=== PATIENT | female | born 1985 | race African-American/Black ===

== ENCOUNTER 2017-01-28 12:50 | Emergency (ER) | payer OTHER, MEDICAID ==
[2017-01-28] MEDS ORDERED: IBUPROFEN 800 MG TABLET PO ONE (14:08)
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
[2017-01-28 21:32] VITALS: BP 118/72
== END 2017-01-28 14:31 | disposition home or self-care (01) ==
LOC: ER 12:50
DX: M25.512 Pain in left shoulder (principal); M25.532 Pain in left wrist; V87.7XXA Person injured in collision between other specified motor vehicles (traffic), initial encounter
CPT/HCPCS: 99284

== ENCOUNTER → 2018-04-20 | Outpatient (CLI) | payer OTHER ==
--- NOTE | 2018-04-20 10:26 | RADIOLOGY REPORT (SQ) ---
EXAM DESCRIPTION: U/S NON-OB PELVIS TV W/O DOP COMPLETED DATE/TIME: 04/20/2018 10:09 am REASON FOR STUDY: N92.1 EXCESSIVE AND FREQUENT MENSTRUATION WITH IRREGULAR CYCLE N92.1 EXCESSIVE AN D FREQUENT MENSTRUATION WITH IRREGULAR CYC E66.01 MORBID (SEVERE) OBESITY DUE TO EXCESS CALORIES N94 .6 DYSMENORRHEA, UNSPECIFIED LMP 03/22/2018 COMPARISON: 06/01/2011 TECHNIQUE: Dynamic and static grayscale images acquired of the pelvis via transvaginal approach and recorded on PACS. Additional selected color Doppler and spectral images recorded. LIMITATIONS: None. FINDINGS: UTERUS: Myometrium is heterogeneous. Likely 4.5 x 4 x 2.8 cm fibroid is present anteriorl y. ENDOMETRIAL STRIPE: No focal or generalized thickening. No masses. CERVIX: No nabothian cysts. RIGHT OVARY AND DOPPLER: Normal size. No worrisome masses. Normal arterial vascular flow without evid ence for torsion. LEFT OVARY AND DOPPLER: Normal size. No worrisome masses. There is a 2.9 x 2.2 x 1.9 cm cyst. Hanna l arterial vascular flow without evidence for torsion. FREE FLUID: None noted. OTHER: No other significant finding. MEASUREMENTS: UTERUS: 10.3 x 5.7 x 5.4 cm ENDOMETRIAL STRIPE: 8.5 mm RIGHT OVARY: 2.6 x 1.7 x 2 cm LEFT OVARY: 3.2 x 2.7 x 2.6 cm IMPRESSION: Uterine fibroid. TECHNICAL DOCUMENTATION: JOB ID: [id number] [employer]- All Rights Reserved Rev-02/02 Reading location - IP/workstation name: [email or web address]
== END ==
LOC: RAD 09:05
PROVIDERS: ATTEND Obstetrics & Gynecology Gynecology
DX: D25.9 Leiomyoma of uterus, unspecified (principal); N92.1 Excessive and frequent menstruation with irregular cycle; N94.6 Dysmenorrhea, unspecified; E66.01 Morbid (severe) obesity due to excess calories
CPT/HCPCS: 76830

== ENCOUNTER 2019-02-12 05:20 | Day surgery (SDC) | payer BC, OTHER ==
[2019-02-05 09:46] LABS: APPEARANCE,URINE CLEAR; BILIRUBIN,URINE NEGATIVE (NEGATIVE); COLOR,URINE YELLOW; GLUCOSE, URINE NEGATIVE (NEGATIVE); KETONES,URINE NEGATIVE (NEGATIVE); LEUKOCYTE ESTERASE,URINE NEGATIVE (NEGATIVE); NITRITE,URINE NEGATIVE (NEGATIVE); PROTEIN,URINE NEGATIVE (NEGATIVE); URINE SPECIFIC GRAVITY 1.015; UROBILINOGEN,URINE NEGATIVE mg/dL (<2.0)
[2019-02-05 10:05] LABS: HEMATOCRIT 36.7 % (36.0-47.0); HEMOGLOBIN 12.1 g/dL (12.0-15.5); MEAN CORPUSCULAR HEMOGLOBIN 25.4 pg (27.0-33.4); MEAN CORPUSCULAR HGB CONC 32.9 g/dL (32.0-36.0); MEAN CORPUSCULAR VOLUME 77 fl (80-97); PLATELET COUNT 406 10^3/uL (150-450); RED BLOOD COUNT 4.76 10^6/uL (3.72-5.28); RED CELL DISTRIBUTION WIDTH 14.9 % (11.5-14.0); WHITE BLOOD COUNT 7.1 10^3/uL (4.0-10.5)
[~2019-02-12 05:20] MED LIST: LACTATED RINGERS 1000 ML IV PRN; LIDOCAINE 0.5% INJ-PF (5 MG/ML) 50 ML SDV SUBCUT PRN
[2019-02-12] MEDS ORDERED: LIDOCAINE 2% INJ (20 MG/ML) 20 ML MDV ONE (06:46)
[2019-02-12] MEDS ORDERED: MIDAZOLAM 2 MG/2 ML INJ ONE ×2 (06:59→07:01)
[2019-02-12] MEDS ORDERED: HYDROMORPHONE HCL INJ/PF 2 MG/ML AMPULE ONE (06:59)
[2019-02-12] MEDS ORDERED: ACETAMINOPHEN 1,000 MG/100 ML RTUPB IV ONE (06:59)
[2019-02-12] MEDS ORDERED: PROPOFOL INJ 200 MG/20 ML VIAL IV ONE (06:59)
[2019-02-12] MEDS ORDERED: PROMETHAZINE HCL INJ 25 MG/1 ML VIAL ONE (07:00)
[2019-02-12] MEDS ORDERED: SCOPOLAMINE HYDROBROMIDE 1.5 MG PATCH.TD72 ONE (07:01)
[2019-02-12] MEDS ORDERED: FAMOTIDINE INJ/PF 20 MG/2 ML SDV IV ONE (07:01)
[2019-02-12] MEDS ORDERED: METOCLOPRAMIDE HCL INJ/PF 10 MG/2 ML SDV ONE (07:04)
[2019-02-12] MEDS ORDERED: CEFAZOLIN 2 GM/D5W RTU 2 GM/50 ML RTUPB IV ONE (07:11)
[2019-02-12 07:28] LABS: ANION GAP 12 (5-19); BLOOD UREA NITROGEN 11 mg/dL (7-20); CALCIUM 9.6 mg/dL (8.4-10.2); CARBON DIOXIDE 25 mmol/L (22-30); CHLORIDE 105 mmol/L (98-107); GLUCOSE 118 mg/dL (75-110); POTASSIUM 3.9 mmol/L (3.6-5.0); SODIUM 142.4 mmol/L (137-145)
[2019-02-12] MEDS ORDERED: BUPIVACAINE HCL 0.25 % INJ/PF (2.5 MG/1 ML) 30 ML VIAL ONE (07:48)
[2019-02-12] MEDS ORDERED: FENTANYL CITRATE INJ/PF 100 MCG/2 ML AMPUL IV PRN ×3 (07:51)
[2019-02-12] MEDS ORDERED: MORPHINE SULFATE 10 MG/ML INJ IV PRN (07:51)
[2019-02-12] MEDS ORDERED: ONDANSETRON HCL INJ/PF 4 MG/2 ML SDV IV PRN (07:51)
[2019-02-12] MEDS ORDERED: DIPHENHYDRAMINE HCL 50 MG/ML VIAL IV PRN (07:51)
[2019-02-12] MEDS ORDERED: MEPERIDINE HCL/PF INJ 25 MG/1 ML DISP.SYRIN IV PRN (07:51)
--- NOTE | 2019-02-12 09:49 | OPERATIVE REPORT E ---
Operative Report NAME: CYNTHIA BURCH : 1985 AGE: 33Y DATE OF SURGERY: 02/12/2019 ROOM: PREOPERATIVE DIAGNOSIS: OPERATIVE MENORRHEA WITH DYSMENORRHEA. POSTOPERATIVE DIAGNOSIS: 1. OPERATIVE MENORRHEA WITH DYSMENORRHEA. 2. ADHESIONS. OPERATION: Robotic assisted total hysterectomy with right salpingectomy and lysis of adhesions. SURGEON: Orion LOU M.D. ESTIMATED BLOOD LOSS: Less than 50 mL. TISSUE REMOVED: Uterus and right ovary. SURGEON: Orion LOU M.D. ANESTHESIA: General. PROCEDURE: The patient was placed in a dorsal lithotomy position, prepped and draped in sterile fashion. Speculum was placed. Cervix was visualized and grasped with a single-tooth tenaculum. The uterine manipulator was placed per protocol. The single-tooth tenaculum was removed. Attention was turned to the abdomen where a supraumbilical incision was made. Trocar was introduced with insufflation of the abdomen. There were multiple adhesions from the mound to the anterior abdominal wall where she had prior surgery at the umbilicus. The left adnexa was obliterated with omentum and no other overt abnormalities were noted. A second puncture was made on the right. Trocar was introduced, started on the left. Trocar was introduced and an accessory port on the right above the iliac crest. Robot was docked in usual fashion. Using robotic instrumentation, the right mesosalpinx was divided. This continued down to the level of the utero-ovarian ligament which was divided. This continued down through the ascending branch uterine artery on the right. On the left there were multiple adhesions in the omentum, the ovary and the tube. These were carefully dissected away. Tube could not be positively identified. The bladder flaps were created with sharp dissection. Using the bipolar, the broad ligament on the left was divided and this continued down to the level of the ascending branch of the uterine artery. Bladder flap was then created with sharp and blunt dissection. The uterus then removed by making a circumferential incision using bipolar cautery. The uterus and the right tube were removed. The cuff was then closed with a running suture of 0-Vicryl. The attention was turned back to the abdomen after undocking the robot. The trocar was removed after deflating the abdomen. The incision was closed with 2-0 Vicryl for the skin. The patient tolerated procedure well and was taken to Recovery Room in good condition and urine remained clear throughout the procedure and she was taken to recovery room in good condition. DICTATING PHYSICIAN: Orion LOU M.D. [id number] PHY#: [id number] ID: [id number] JOB#: [id number] ACCT: [id number] cc:Orion LOU M.D. >
[2019-02-12] MEDS ORDERED: ONDANSETRON HCL 8 MG TABLET PO PRN (11:08)
[2019-02-12] MEDS ORDERED: MORPHINE SULFATE 10 MG/ML INJ IM PRN (11:11)
[2019-02-12] MEDS: IBUPROFEN 800 MG TABLET PO SCH ×2 (13:45→21:12)
[2019-02-12] MEDS ORDERED: SUCCINYLCHOLINE CHLORIDE INJ 200 MG/10 ML VIAL ONE (14:43)
[2019-02-12] MEDS ORDERED: ONDANSETRON HCL INJ/PF 4 MG/2 ML SDV ONE (14:43)
[2019-02-12] MEDS ORDERED: DEXAMETHASONE SOD PHOSPHATE INJ 4 MG/1 ML VIAL ONE (14:43)
[2019-02-12] MEDS ORDERED: ROCURONIUM BROMIDE INJ 50 MG/5 ML VIAL IV ONE (14:43)
[2019-02-12] MEDS ORDERED: PHENYLEPHRINE HCL INJ/PF 10 MG/1 ML SDV ONE (14:43)
[2019-02-12] MEDS ORDERED: GLYCOPYRROLATE 1 MG/5 ML SYRINGE ONE (14:43)
[2019-02-12] MEDS ORDERED: NEOSTIGMINE METHYLSULFATE 10 MG/10 ML VIAL ONE (14:43)
[2019-02-12] MEDS ORDERED: KETOROLAC TROMETHAMINE 60 MG/2 ML SDV ONE (14:43)
[2019-02-12] MEDS: OXYCODONE-ACETAMINOPHEN 5-325 MG TABLET PO PRN ×2 (17:14→23:18)
[2019-02-13] MEDS: IBUPROFEN 800 MG TABLET PO SCH (06:11)
--- NOTE | 2019-02-13 07:43 | PDOC DISCHARGE SUMMARY ---
General - Admit/Disc Date/PCP Admission Date/Primary Care Provider: 02/12/19 12:21 SERENA VARELA MD Discharge Date: 02/13/19 - Discharge Diagnosis (1) Dysmenorrhea Is this a current diagnosis for this admission?: Yes (2) Menorrhagia Is this a current diagnosis for this admission?: Yes - Additional Information Discharge Diet: As Tolerated Discharge Activity: Balance Activity w/Rest, No Lifting/Push/Pulling, Pelvic Rest, Walk Frequently Home Medications: Multivitamin [Daily Multiple Vitamin] 1 tab PO DAILY 02/01/19 Omeprazole 20 mg PO DAILY 02/01/19 History of Present Illness History of Present Illness: CYNTHIA BURCH is a 33 year old female Hospital Course Hospital Course: robotic assisted hysterectomy due to dysmenorrhea/menorrhagia Physical Exam - Physical Exam Vital Signs: Temp Pulse Resp BP Pulse Ox 98.0 F 65 16 119/63 96 02/13/19 03:07 02/13/19 03:07 02/13/19 03:07 02/13/19 03:07 02/13/19 03:07 Intake & Output 02/12/19 02/13/19 02/14/19 06:59 06:59 06:59 Intake Total 0 3190 Output Total 125 Balance 0 3065 Weight 131.54 kg 131.9 kg General appearance: PRESENT: no acute distress Respiratory exam: PRESENT: clear to auscultation suzi Cardiovascular exam: PRESENT: RRR Result Laboratory Results: 02/05/19 09:19 02/12/19 06:01 Plan Discharge Plan: d/c f/u prn or 1 week Acute Heart Failure Is this a Heart Failure Patient?: No
[2019-02-13 08:18] VITALS: BP 139/80
[2019-02-13] MEDS ORDERED: MULTIVITAMIN TABLET PO SCH (10:00)
[2019-02-13] MEDS ORDERED: PANTOPRAZOLE SODIUM 20 MG TABLET.DR PO SCH (10:00)
== END 2019-02-13 09:35 | disposition home or self-care (01) ==
LOC: OROUT 05:20 → 2S 11:56 → OROUT 12:20 → 2S 12:21 → UNDOADMIN 12:21 → 2S 12:27 → 2N 12:27 → UNDODISIN 02-13 09:35 → OROUT 02-13 09:35
PROVIDERS: ATTEND Obstetrics & Gynecology Gynecology
DX: N93.9 Abnormal uterine and vaginal bleeding, unspecified (principal); N94.6 Dysmenorrhea, unspecified; N92.0 Excessive and frequent menstruation with regular cycle; E11.9 Type 2 diabetes mellitus without complications; E03.9 Hypothyroidism, unspecified; D57.3 Sickle-cell trait; G43.909 Migraine, unspecified, not intractable, without status migrainosus; E66.9 Obesity, unspecified; Z68.43 Body mass index [BMI] 50.0-59.9, adult; K66.0 Peritoneal adhesions (postprocedural) (postinfection); N87.0 Mild cervical dysplasia; N83.8 Other noninflammatory disorders of ovary, fallopian tube and broad ligament; Z79.899 Other long term (current) drug therapy
CPT/HCPCS: 58571; S2900; 36415; 80048; 81001; 840; 84703; 85027; 86850; 86900; 86901; 88307; J0131; J0330; J0690; J1100; J1170; J1885; J2250; J2270; J2370; J2405; J2550; J2704; J2710; J2765; J3490; S0028